=== PATIENT | female | born 1995 | race Caucasian/White ===

== ENCOUNTER 2016-11-28 19:22 | Emergency (ER) | payer MEDICAID ==
[~2016-11-28] VITALS: Ht 167.6 cm; Wt 60.0 kg
[2016-11-28 19:29] VITALS: BP 148/81; PULSE 90; RESP 18; TEMP 98.1; O2SAT 99
[2016-11-28] MEDS ORDERED: METH40TA PO (19:40)
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
[2016-11-28] MEDS ORDERED: LIDOCAINE HCL 1% 50 ML VIAL INFIL ONE (19:45)
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
[2016-11-28 22:12] VITALS: BP 134/68; PULSE 78; RESP 18; O2SAT 100
== END 2016-11-28 22:12 | disposition home or self-care (01) ==
LOC: NEPD 19:22
DX: S02.2XXA Fracture of nasal bones, initial encounter for closed fracture (principal); S01.81XA Laceration without foreign body of other part of head, initial encounter; S00.12XA Contusion of left eyelid and periocular area, initial encounter; W22.8XXA Striking against or struck by other objects, initial encounter; Z72.0 Tobacco use; Z88.2 Allergy status to sulfonamides; Z79.899 Other long term (current) drug therapy
CPT/HCPCS: 12011; 70450; 70486; 84703

== ENCOUNTER 2016-12-05 08:49 | Emergency (ER) | payer MEDICAID ==
[~2016-12-05] VITALS: Ht 157.5 cm; Wt 50.0 kg
[~2016-12-05 08:49] MED LIST: METH40TA PO
[2016-12-05 08:51] VITALS: BP 116/57; PULSE 71; RESP 14; TEMP 98.6; O2SAT 100
--- NOTE | 2016-12-05 09:31 | PD ---
HPI Chief Complaint: Skin Problem Time Seen by Provider: 09:09 Travel History International Travel<30 days: No Contact w/Intl Traveler<30days: No Traveled to known affect area: No History of Present Illness HPI This patient requests suture removal. She had sutures placed in her left eyebrow 5 days ago. She is not having any drainage or fever. Symptoms severity is mild PFSH Past Medical History ?: Not : 2 Para: 2 Social History Alcohol Use: No Tobacco Use: Yes Substance Use: No Allergies-Medications (Allergen,Severity, Reaction): Coded Allergies: Sulfa (Sulfonamide Antibiotics) (Verified Allergy, Unknown, 11/28/16) Reported Meds & Prescriptions Reported Meds & Active Scripts Active Reported Methadone (Methadone HCl) 40 Mg Tab 160 Mg PO DAILY Review of Systems General / Constitutional: No: Fever HENT: No: Headaches Cardiovascular: No: Chest Pain or Discomfort Physical Exam Narrative Psych: Normal mood and affect. Normal insight and judgment. NECK: Symmetrical appearance, midline trachea. No mass or crepitus. Thyroid without enlargement, tenderness, or mass. Left brow: [address] No dehiscence or sign of infection Data Data Last Documented VS Vital Signs Date Time Temp Pulse Resp B/P (MAP) Pulse Ox O2 Delivery O2 Flow Rate FiO2 12/05/16 08:51 98.6 71 14 116/57 (76) 100 MDM Medical Decision Making Medical Screen Exam Complete: Yes Emergency Medical Condition: Yes Medical Record Reviewed: Yes Differential Diagnosis Suture removal, laceration repair, dehiscence Narrative Course I have reviewed the patient's electronic medical record. Sutures are removed The patient was advised to follow up with their physician and return if they worsen. Diagnosis Primary Impression: Visit for suture removal Additional Instructions: The patient was advised to follow up with their physician and return if they worsen. Med/Other Pt SpecificInfo: Other Disposition: 01 DISCHARGE HOME Condition: Stable Sheldon Bartlett MD Dec 05, 2016 09:31
== END 2016-12-05 09:46 | disposition home or self-care (01) ==
LOC: NEPD 08:49
DX: S01.112D Laceration without foreign body of left eyelid and periocular area, subsequent encounter (principal); Z48.02 Encounter for removal of sutures; X58.XXXD Exposure to other specified factors, subsequent encounter
CPT/HCPCS: 99281

== ENCOUNTER 2017-05-01 20:07 | Emergency (ER) | payer MEDICAID ==
[2017-05-01 20:27] VITALS: BP 125/60; PULSE 74; RESP 12; TEMP 98.7; O2SAT 98
--- NOTE | 2017-05-02 12:13 | PD ---
HPI Chief Complaint: Related Problem Time Seen by Provider: 20:27 Travel History International Travel<30 days: No Contact w/Intl Traveler<30days: No Traveled to known affect area: No History of Present Illness HPI 21-year-old female presents to [facility] department for evaluation of lower abdominal cramping. Patient took a positive test one week ago. She is uncertain how far along she might be. She came for evaluation because she had lower abdominal cramping a couple hours ago. It is subsided. She denies any fever or chills. No vaginal discharge or bleeding. No other symptoms to report. PFSH Past Medical History ?: : 2 Para: 2 Social History Alcohol Use: No Tobacco Use: Yes Substance Use: No Allergies-Medications (Allergen,Severity, Reaction): Coded Allergies: Sulfa (Sulfonamide Antibiotics) (Verified Allergy, Unknown, 11/28/16) Reported Meds & Prescriptions Reported Meds & Active Scripts Active Reported Methadone (Methadone HCl) 40 Mg Tab 160 Mg PO DAILY Review of Systems Except as stated in HPI: all other systems reviewed are Neg Physical Exam Narrative Well-nourished female patient ambulatory and in no acute distress. She appears nontoxic. She has even respirations. Regular heart rate. Moves all extremities speech to me clearly. Data Data Last Documented VS Vital Signs Date Time Temp Pulse Resp B/P (MAP) Pulse Ox O2 Delivery O2 Flow Rate FiO2 05/01/17 20:27 98.7 74 12 125/60 (81) 98 Orders Orders Ed Urine Pregnancytest Poc (05/01/17 20:29) MDM Medical Decision Making Medical Screen Exam Complete: Yes Emergency Medical Condition: Yes Medical Record Reviewed: Yes Differential Diagnosis versus UTI versus STD versus threatened Narrative Course 21-year-old female presents to emergency department for evaluation of lower abdominal pain. Patient appears nontoxic. Vital signs are stable. Workup is initiated. Prior to PEG placement, patient chooses to leave. AMA: The risks of leaving against medical advice without further evaluation treatment were discussed with the patient. These risks include cardiac dysfunction, cardiac dysrhythmia, possible heart attack, possible stroke or . The patient indicated understanding of these risks and appeared to have the capacity to make this decision. Diagnosis Primary Impression: Abdominal pain Patient Instructions: General Instructions Departure Forms: Tests/Procedures Disposition: 07 AGAINST MEDICAL ADVICE Condition: Stable Chantal Oreilly May 02, 2017 12:13
== END 2017-05-01 21:29 | disposition left against medical advice (07) ==
LOC: NED 20:07
DX: O26.899 Other specified pregnancy related conditions, unspecified trimester (principal); Z53.21 Procedure and treatment not carried out due to patient leaving prior to being seen by health care provider; R10.9 Unspecified abdominal pain; R10.30 Lower abdominal pain, unspecified; Z72.0 Tobacco use
CPT/HCPCS: 99282

== ENCOUNTER 2017-05-09 15:58 | Emergency (ER) | payer MEDICAID ==
[~2017-05-09] VITALS: Ht 157.5 cm; Wt 54.5 kg
[2017-05-09 16:06] VITALS: BP 115/57; PULSE 88; RESP 22; TEMP 98.8; O2SAT 98
[2017-05-09 16:09] VITALS: BP 115/57; PULSE 91; RESP 22; TEMP 98.8; O2SAT 99
[2017-05-09] MEDS ORDERED: PRENCHW PO (16:13)
[2017-05-09 17:18] LABS: BASOPHIL % 0.4 % (0.0-2.0); EOSINOPHIL % 0.4 % (0.0-4.0); HEMATOCRIT 41.6 % (35.0-46.0); HEMOGLOBIN 14.4 GM/DL (11.6-15.3); LYMPH % 18.1 % (9.0-44.0); LYMPHOCYTE # 1.9 TH/MM3 (1.0-4.8); MEAN CELL VOLUME 85.1 FL (80.0-100.0); MEAN CORPUSCULAR HEMOGLOBIN 29.6 PG (27.0-34.0); MEAN CORPUSCULAR HGB CONC 34.7 % (32.0-36.0); MEAN PLATELET VOLUME 9.3 FL (7.0-11.0); MONO % 5.5 % (0.0-8.0); MONOCYTE # 0.6 TH/MM3 (0-0.9); NEUT % 75.6 % (16.0-70.0); PLATELET COUNT 244 TH/MM3 (150-450); RED BLOOD COUNT 4.88 MIL/MM3 (4.00-5.30); RED CELL DISTRIBUTION WIDTH 13.3 % (11.6-17.2); WHITE BLOOD COUNT 10.5 TH/MM3 (4.0-11.0)
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
[2017-05-09 17:33] LABS: ALT (GPT) 116 U/L (10-53)
[2017-05-09 17:49] LABS: ALKALINE PHOSPHATASE 65 U/L (45-117); TOTAL BILIRUBIN ADULT 0.8 MG/DL (0.2-1.0); TOTAL PROTEIN 8.3 GM/DL (6.4-8.2)
[2017-05-09 17:55] LABS: ALBUMIN 4.2 GM/DL (3.4-5.0); AST (GOT) 62 U/L (15-37); BICARBONATE 21.8 MEQ/L (21.0-32.0); BLOOD UREA NITROGEN 6 MG/DL (7-18); CALCIUM 8.9 MG/DL (8.5-10.1); CHLORIDE 102 MEQ/L (98-107); CREATININE 0.74 MG/DL (0.50-1.00); GLOMERULAR FILTRATION RATE 97 ML/MIN (>89); GLUCOSE,RANDOM 77 MG/DL (74-106); SODIUM (NA) 136 MEQ/L (136-145)
[2017-05-09 18:56] LABS: AMORPHOUS SEDIMENT, URINE RARE; BACTERIA, URINE MANY /hpf; BILIRUBIN, URINE NEG (NEG); BLOOD, URINE NEG (NEG); GLUCOSE,URINE NEG (NEG); KETONE, URINE 150 mg/dL (NEG); MUCUS URINE MANY /lpf (OCC); NITRITE,URINE POS (NEG); PH, URINE 6.5 (5.0-8.5); SQUAMOUS EPITHELIAL CELL URINE 6 /hpf (0-5); URINE COLOR YELLOW (YELLW/STRAW); URINE LEUKOCYTE ESTERASE MOD (NEG)
[2017-05-09] MEDS ORDERED: NITROFURANTOIN MONOHYD MACROCR 100 MG CAP PO ONE (19:15)
--- NOTE | 2017-05-09 20:18 | RADRPT ---
EXAM DATE/TIME: 05/09/2017 19:11 [facility] COMPARISON: No previous studies available for comparison. INDICATIONS : Right lower quadrant pain. LAB(S): Beta-hC MEDICAL HISTORY : . Substance abuse. SURGICAL HISTORY : LEEP. ENCOUNTER: Initial ACUITY: 1 day PAIN SCORE: 4/10 LOCATION: Bilateral pelvis MEASUREMENTS: UTERUS: 8.7 x 5.9 x 5.5 cm ENDOMETRIAL STRIPE: 20 mm RIGHT OVARY: 4.1 x 2.6 x 2.0 cm LEFT OVARY: 3.0 x 2.5 x 2.1 cm FREE FLUID: Yes small amount in posterior cul de sac. CROWN RUMP LENGTH: 0.37 cm = 6 WKS 0 DAYS FHR: 117 BPM FINDINGS: UTERUS: There is an intrauterine at approximately 6 weeks gestational age. An approximately 12 x 6 x 6 mm subchorionic hemorrhage is present. heart tones are demonstrated. RIGHT OVARY: 2.2 x 1.9 x 1.8 cm heterogeneous nonvascular structure, probably a corpus luteal cyst or a hemorrhagi c cyst. LEFT OVARY: Ovary contains no mass or significant cystic lesion. MISCELLANEOUS: Small, simple appearing free fluid in the cul-de-sac. CONCLUSION: 1. Single, viable intrauterine with a small subchorionic hemorrhage. 2. Nonvascular mass of the left ovary probably a corpus luteal and/or hemorrhagic cyst. Features are not typical of ectopic. 3. Normal left ovary. 4. Small and fairly simple appearing free fluid in the pelvic cul-de-sac. Vamsi Carpio MD on May 09, 2017 at 20:13 Board Certified Radiologist. This report was verified electronically.
[2017-05-09] MEDS ORDERED: CEPH-460 PO (20:29)
== END 2017-05-09 21:41 ==
LOC: NEPD 15:58
DX: O23.41 Unspecified infection of urinary tract in pregnancy, first trimester (principal); B96.20 Unspecified Escherichia coli [E. coli] as the cause of diseases classified elsewhere; O34.81 Maternal care for other abnormalities of pelvic organs, first trimester; N83.201 Unspecified ovarian cyst, right side; O99.331 Smoking (tobacco) complicating pregnancy, first trimester; F17.210 Nicotine dependence, cigarettes, uncomplicated; Z3A.01 Less than 8 weeks gestation of pregnancy
CPT/HCPCS: 76700; 80053; 81001; 84702; 84703; 85025; 87077; 87086; 87186

== ENCOUNTER 2017-09-04 10:14 | Observation (INO) ==
[2017-09-04 14:13] LABS: Baso % (Auto) 0.3 % (0.0-2.0); Eos # (Auto) 0.1 th/mm3 (0.0-0.4); Eos % (Auto) 1.4 % (0.0-4.0); Hematocrit 37.4 % (35.0-46.0); Hemoglobin 12.6 gm/dL (11.6-15.3); Lymph # (Auto) 1.5 th/mm3 (1.0-4.8); Lymph % (Auto) 18.6 % (9.0-44.0); Mean Corpuscular HGB Conc 33.8 % (32.0-36.0); Mean Corpuscular Hemoglobin 28.8 pg (27.0-34.0); Mean Corpuscular Volume 85.1 fL (80.0-100.0); Mean Platelet Volume 8.3 fL (7.0-11.0); Mono # (Auto) 0.4 th/mm3 (0.0-0.9); Mono % (Auto) 5.4 % (0.0-8.0); Neut # (Auto) 5.8 th/mm3 (1.8-7.7); Neut % (Auto) 74.3 % (16.0-70.0); Platelet Count 211 th/mm3 (150-450); Red Cell Distribution Width 13.9 % (11.6-17.2); White Blood Count 7.9 th/mm3 (4.0-11.0)
[2017-09-04 14:38] LABS: Anion Gap 8 meq/L (5-15); Blood Urea Nitrogen 9 mg/dL (7-18); Calcium 8.7 mg/dL (8.5-10.1); Carbon Dioxide 25.1 meq/L (21.0-32.0); Chloride 108 meq/L (98-107); Glomerular Filtration Rate Greater Than 89 mL/min (>89); Glucose,Random 92 mg/dL (74-106); Potassium 4.1 meq/L (3.5-5.1); Sodium 141 meq/L (136-145)
[2017-09-04 14:39] LABS: Albumin 3.3 g/dL (3.4-5.0)
[2017-09-04 14:41] LABS: Total Protein 7.1 g/dL (6.4-8.2)
[2017-09-04 15:20] LABS: Amphetamine Urine With Conf Neg (Neg); Benzodiazepine Urine With Conf Neg (Neg)
--- NOTE | 2017-09-04 19:15 | P.OBANTE ---
Subjective Interval History: Full H & P dictated admitted for hyperemesis and opioid use disorder now sleeping soundly anticipate discharge on buprenophine and reglan tomorrow Objective Vital Signs and I&O: Vital Signs 09/04/17 12:00 09/04/17 15:59 09/04/17 16:00 Temperature 97.9 F 98.3 F Pulse Rate 70 70 Respiratory Rate 18 18 Blood Pressure 89/48 L 108/41 L Intake & Output 09/04/17 09/04/17 09/05/17 06:59 18:59 06:59 Weight 61.689 kg Other: Weight On Admission 61.689 kg Lab and Micro Results: Laboratory Results - last 24 hr 09/04/17 09/04/17 09/04/17 13:52 13:52 13:52 WBC 7.9 RBC 4.40 Hgb 12.6 Hct 37.4 MCV 85.1 MCH 28.8 MCHC 33.8 RDW 13.9 Plt Count 211 MPV 8.3 Neut % (Auto) 74.3 H Lymph % (Auto) 18.6 Payne % (Auto) 5.4 Eos % (Auto) 1.4 Baso % (Auto) 0.3 Neut # (Auto) 5.8 Lymph # (Auto) 1.5 Payne # (Auto) 0.4 Eos # (Auto) 0.1 Baso # (Auto) 0.0 WBC Differential . Differential Comment Auto diff final Sodium 141 Potassium 4.1 Chloride 108 H Carbon Dioxide 25.1 Anion Gap 8 BUN 9 Creatinine 0.54 Estimated GFR Greater than 89 Random Glucose 92 Calcium 8.7 Total Bilirubin 0.4 Direct Bilirubin 0.1 Indirect Bilirubin 0.3 AST 18 ALT 31 Alkaline Phosphatase 77 Total Protein 7.1 Albumin 3.3 L Beta-Hydroxybutyric Acd Urine Opiates Screen Ur Barbiturates Screen Ur Amphetamine Screen U Benzodiazepines Scrn Urine Cocaine Screen U Cannabinoids Screen 09/04/17 09/04/17 13:52 14:30 WBC RBC Hgb Hct MCV MCH MCHC RDW Plt Count MPV Neut % (Auto) Lymph % (Auto) Payne % (Auto) Eos % (Auto) Baso % (Auto) Neut # (Auto) Lymph # (Auto) Payne # (Auto) Eos # (Auto) Baso # (Auto) WBC Differential Differential Comment Sodium Potassium Chloride Carbon Dioxide Anion Gap BUN Creatinine Estimated GFR Random Glucose Calcium Total Bilirubin Direct Bilirubin Indirect Bilirubin AST ALT Alkaline Phosphatase Total Protein Albumin Beta-Hydroxybutyric Acd 0.11 Urine Opiates Screen Neg Ur Barbiturates Screen Neg Ur Amphetamine Screen Neg U Benzodiazepines Scrn Neg Urine Cocaine Screen Neg U Cannabinoids Screen Neg Physical Exam: GENERAL: Well-nourished, well-developed patient. CARDIOVASCULAR: Regular rate and rhythm without murmurs, gallops, or rubs. RESPIRATORY: Breath sounds equal bilaterally. No accessory muscle use. ABDOMEN/GI: Abdomen soft, non-tender. Fundus: [-] GENITOURINARY: External Genitalia: intact and normal in appearance Cervix: [-] Dilatation: [-] Effacement: [-] Station: [-] Presentation: [-] Membranes: [-] Uterine Contractions: [-] FHT's: Category: [-] Baseline: [-] Reactive: [-] Variability: [-] Decels: [-] EXTREMITIES: No cyanosis or edema, non-tender, without signs of DVT. Assessment and Plan - Diagnosis (1) Hyperemesis gravidarum Code(s): O21.0 - Mild hyperemesis gravidarum Status: Acute (2) Opioid use disorder Code(s): F11.99 - Opioid use, unspecified with unspecified opioid-induced disorder Status: Acute (3) 23 weeks gestation of Code(s): Z3A.23 - 23 weeks gestation of Status: Acute
[2017-09-04] MEDS ORDERED: traZODone 50 MG Tablet PO SCH (21:15)
[2017-09-04] MEDS: Metoclopramide 10 MG Tablet PO SCH (21:49)
[2017-09-05 02:06] LABS: Amorphous Sediment,Urine Rare /hpf; Bacteria,Urine Rare /hpf; Bilirubin,Urine Negative (Negative); Calcium Oxalate Crystals,Urine Occasional /hpf; Clarity,Urine Cloudy (Clear); Color,Urine Yellow (Yellw/Straw); Glucose,Urine (UA) Negative (Negative); Leukocyte Esterase,Urine Negative (Negative); Mucus,Urine Few /lpf (Occasional); Nitrite,Urine Negative (Negative); Specific Gravity,Urine 1.021 (1.002-1.035); Squamous Epithelial Cell,Urine 1 /hpf (0-5)
[2017-09-05] MEDS: Metoclopramide 10 MG Tablet PO SCH ×3 (07:58→17:03)
--- NOTE | 2017-09-05 08:22 | P.OBANTE ---
Subjective Interval History: Feeling ok this am after a very rough 24 hours. Now tolerating po and desires food. Was without any opioid until 4 pm which both exacerbated withdrawal but facilitated transition. Took 12 mg subutex total yesterday. Ready for dose today. No fever, chills, leakage of fluid. GFM noted. Objective Vital Signs and I&O: Vital Signs 09/04/17 12:00 09/04/17 15:59 09/04/17 16:00 Temperature 97.9 F 98.3 F Pulse Rate 70 70 Respiratory Rate 18 18 Blood Pressure 89/48 L 108/41 L 09/04/17 19:59 09/04/17 23:50 09/05/17 04:04 Temperature 98.6 F 98.1 F 98.6 F Pulse Rate 71 75 78 Respiratory Rate 15 18 18 Blood Pressure 107/56 L 99/44 L 102/54 L 09/05/17 08:03 Temperature Pulse Rate Respiratory Rate 16 Blood Pressure Intake & Output 09/04/17 09/05/17 09/05/17 18:59 06:59 18:59 Intake Total 1000 / 1000 Balance 1000 / 1000 Weight 61.689 kg Intake: IV 1000 / 1000 LR 1000 mL Inj 1,000 ML @ 125 1000 / 1000 mls/hr IV.SIG .Q8H [facility] Rx#: [id number] Other: Weight On Admission 61.689 kg Lab and Micro Results: Laboratory Results - last 24 hr 09/04/17 09/04/17 09/04/17 13:52 13:52 13:52 WBC 7.9 RBC 4.40 Hgb 12.6 Hct 37.4 MCV 85.1 MCH 28.8 MCHC 33.8 RDW 13.9 Plt Count 211 MPV 8.3 Neut % (Auto) 74.3 H Lymph % (Auto) 18.6 [place] % (Auto) 5.4 Eos % (Auto) 1.4 Baso % (Auto) 0.3 Neut # (Auto) 5.8 Lymph # (Auto) 1.5 [place] # (Auto) 0.4 Eos # (Auto) 0.1 Baso # (Auto) 0.0 WBC Differential . Differential Comment Auto diff final Sodium 141 Potassium 4.1 Chloride 108 H Carbon Dioxide 25.1 Anion Gap 8 BUN 9 Creatinine 0.54 Estimated GFR Greater than 89 Random Glucose 92 Calcium 8.7 Total Bilirubin 0.4 Direct Bilirubin 0.1 Indirect Bilirubin 0.3 AST 18 ALT 31 Alkaline Phosphatase 77 Total Protein 7.1 Albumin 3.3 L Beta-Hydroxybutyric Acd Urine Color Urine Clarity Urine pH Ur Specific [place] Urine Protein Urine Glucose (UA) Urine Ketones Urine Occult Blood Urine Nitrate Urine Bilirubin Urine Urobilinogen Ur Leukocyte Esterase Urine RBC Urine WBC Ur Squamous Epith Cells Calcium Oxalate Crystal Amorphous Sediment Urine Bacteria Urine Mucus Micro UA Comment Urine Culture Comments Urine Opiates Screen Ur Barbiturates Screen Ur Amphetamine Screen U Benzodiazepines Scrn Urine Cocaine Screen U Cannabinoids Screen 09/04/17 09/04/17 09/04/17 13:52 14:30 14:30 WBC RBC Hgb Hct MCV MCH MCHC RDW Plt Count MPV Neut % (Auto) Lymph % (Auto) [place] % (Auto) Eos % (Auto) Baso % (Auto) Neut # (Auto) Lymph # (Auto) [place] # (Auto) Eos # (Auto) Baso # (Auto) WBC Differential Differential Comment Sodium Potassium Chloride Carbon Dioxide Anion Gap BUN Creatinine Estimated GFR Random Glucose Calcium Total Bilirubin Direct Bilirubin Indirect Bilirubin AST ALT Alkaline Phosphatase Total Protein Albumin Beta-Hydroxybutyric Acd 0.11 Urine Color Yellow Urine Clarity Cloudy H Urine pH 6.0 Ur Specific [place] 1.021 Urine Protein Negative Urine Glucose (UA) Negative Urine Ketones Negative Urine Occult Blood Negative Urine Nitrate Negative Urine Bilirubin Negative Urine Urobilinogen 2.0 H Ur Leukocyte Esterase Negative Urine RBC Less than 1 Urine WBC 1 Ur Squamous Epith Cells 1 Calcium Oxalate Crystal Occasional H Amorphous Sediment Rare H Urine Bacteria Rare H Urine Mucus Few H Micro UA Comment Culture not ind Urine Culture Comments Culture not ind Urine Opiates Screen Neg Ur Barbiturates Screen Neg Ur Amphetamine Screen Neg U Benzodiazepines Scrn Neg Urine Cocaine Screen Neg U Cannabinoids Screen Neg Physical Exam: GENERAL: Well-nourished, well-developed patient. PERRLA Neither dilated nor pin point no sweating, sniffling, sneezing CARDIOVASCULAR: Regular rate and rhythm without murmurs, gallops, or rubs. RESPIRATORY: Breath sounds equal bilaterally. No accessory muscle use. ABDOMEN/GI: Abdomen soft, non-tender. fundus U +2 EXTREMITIES: No cyanosis or edema, non-tender, without signs of DVT. Assessment and Plan - Diagnosis (1) Hyperemesis gravidarum Code(s): O21.0 - Mild hyperemesis gravidarum Status: Acute (2) Opioid use disorder Code(s): F11.99 - Opioid use, unspecified with unspecified opioid-induced disorder Status: Acute (3) 23 weeks gestation of Code(s): Z3A.23 - 23 weeks gestation of Status: Acute - Plan Today will advance diet and change scheduling of subutex obtain quick ultrasound anticipate discharge tonight or am Monday
--- NOTE | 2017-09-05 09:43 | MH ---
cc: Radha John MD DATE OF ADMISSION: 09/04/2017 REASON FOR OBSERVATION: 23-1/2 week with inability to hold any food down and loss of 4 pounds in 4 days, nausea, vomiting and muscle pain. SECONDARY DIAGNOSIS: Opioid use disorder, beginning transition onto Subutex. Hepatitis C. HISTORY OF PRESENT CONDITION: The patient is a 22-year-old 3, para 2, with LMP believed to be 03/30/2017 and EDC by this of 01/04/2018 and by 10-week ultrasound of 12/29/2017. She had been brought to the office by the long term where she had been incarcerated for 30 days for violation of probation. She had been on 130 mg of methadone prior to conception. They had increased her to 140 at the time of her diagnosis. Prior to using methadone, her drug of choice had been Dilaudid and she would use up to 32 mg a day for 1 year IV. She had obtained hepatitis C from that. Initially started when she had a partner that encouraged her to begin opioid use and she had a in the family. She was smoking cigarettes, but has stopped that. There is no other substances that she admits to since the methadone and initial drug screen, I believe was consistent with that. Father of the baby was paying the $17 a day for methadone. She was transitioned to oxycodone a week ago and was scheduled to take 80 mg a day, but found she needed more to get through the day and then began having significant symptoms of hyperemesis gravidarum. She is being admitted for symptomatic care and then while she is admitted, be transitioned to buprenorphine. PAST MEDICAL HISTORY: Her general history is significant for hepatitis C. She does have an ALLERGY TO SULFA. She has had a history of abnormal Pap smear and a LEEP. Her cervical length was 4.13 in the office on ultrasound. OBSTETRICAL HISTORY: Significant for 2 term deliveries of healthy babies, 2 girls at 40 weeks in 2011 and 2013. They are currently with their grandmother. She is not smoking or drinking. PHYSICAL EXAMINATION: She is pale, has a mildly elevated heartbeat. She has poor skin turgor. She has no goose bumps. Pupils are equal, reactive to light, and neither pinpoint nor dilated. She is not sweating, sniffling or sneezing. She seems to have anything more of a flat affect and depressed. We may need to address that, also. Her blood type is O positive. Her hemoglobin was 13.8. Her Pap smear here was normal. She is immune to [place] measles. Hepatitis B and HIV were negative. She is negative for GC and chlamydia. Hep C is positive. VDRL will be drawn while she is in the hospital. She has no thyroid enlargement. Lungs are clear. Heart is regular. Fundus is at about umbilicus. She has good heart tones. A pelvic exam was not done. She has normal deep tendon reflexes and no edema. IMPRESSION/PLAN: 23-1/2 week intrauterine with severe nausea, vomiting, weight loss, who needs to come in for hydration and while she is there, she will be initiating her buprenorphine. Risks, benefits, expectations of this course of action have been discussed in great detail. Previously,we talked about maintaining methadone throughout the . We talked about transitioning to Subutex. We talked about abstinence after detoxification versus maintenance therapy. We reviewed the concept of abstinence syndrome. We talked about WARM as an option. Initially, she wanted to stay on her methadone, but has been unable to maintain the cost of that. She has been on oxycodone in an attempt to transition on outpatient basis, and since we are part way through that, I think we can complete that while she is in the hospital. Radha John MD PPC/TL , 09:02 AM , 09:33 AM
--- NOTE | 2017-09-05 17:55 | P.OBANTE ---
Subjective Interval History: had very good day and tolerated po fluids and solids with no emesis. did well on subutex with no withdrawal symptoms ativan helped with anxiety No MAY, N, V, leakage, contractions GFM Objective Vital Signs and I&O: Vital Signs 09/04/17 19:59 09/04/17 23:50 09/05/17 04:04 Temperature 98.6 F 98.1 F 98.6 F Pulse Rate 71 75 78 Respiratory Rate 15 18 18 Blood Pressure 107/56 L 99/44 L 102/54 L 09/05/17 08:00 09/05/17 08:03 09/05/17 09:00 Temperature 97.9 F Pulse Rate 88 Respiratory Rate 16 Blood Pressure 105/59 L 09/05/17 13:58 09/05/17 14:00 Temperature 98.1 F Pulse Rate 97 H Respiratory Rate 18 Blood Pressure 109/50 L Intake & Output 09/04/17 09/05/17 09/05/17 18:59 06:59 18:59 Intake Total 1000 / 1000 Balance 1000 / 1000 Weight 61.689 kg Intake: IV 1000 / 1000 LR 1000 mL Inj 1,000 ML @ 125 1000 / 1000 mls/hr IV.SIG .Q8H [facility] Rx#: [id number] Other: Weight On Admission 61.689 kg Lab and Micro Results: Laboratory Results - last 24 hr 09/04/17 09/05/17 14:30 07:50 Urine Color Yellow Urine Clarity Cloudy H Urine pH 6.0 Ur Specific [place] 1.021 Urine Protein Negative Urine Glucose (UA) Negative Urine Ketones Negative Urine Occult Blood Negative Urine Nitrate Negative Urine Bilirubin Negative Urine Urobilinogen 2.0 H Ur Leukocyte Esterase Negative Urine RBC Less than 1 Urine WBC 1 Ur Squamous Epith Cells 1 Calcium Oxalate Crystal Occasional H Amorphous Sediment Rare H Urine Bacteria Rare H Urine Mucus Few H Micro UA Comment Culture not ind Urine Culture Comments Culture not ind RPR Nonreactive Physical Exam: GENERAL: Well-nourished, well-developed patient. CARDIOVASCULAR: Regular rate and rhythm without murmurs, gallops, or rubs. RESPIRATORY: Breath sounds equal bilaterally. No accessory muscle use. ABDOMEN/GI: Abdomen soft, non-tender. Fundus: [-] GENITOURINARY: External Genitalia: intact and normal in appearance Cervix: [-] Dilatation: [-] Effacement: [-] Station: [-] Presentation: [-] Membranes: [-] Uterine Contractions: [-] FHT's: Category: [-] Baseline: [-] Reactive: [-] Variability: [-] Decels: [-] EXTREMITIES: No cyanosis or edema, non-tender, without signs of DVT. Assessment and Plan - Diagnosis (1) Hyperemesis gravidarum Code(s): O21.0 - Mild hyperemesis gravidarum Status: Acute (2) Opioid use disorder Code(s): F11.99 - Opioid use, unspecified with unspecified opioid-induced disorder Status: Acute (3) 23 weeks gestation of Code(s): Z3A.23 - 23 weeks gestation of Status: Acute - Plan Today will advance diet and change scheduling of subutex obtain quick ultrasound anticipate discharge tonight or am Monday 5:30 pm ready for discharge subutex 4 mg QID ativan 1 mg BID prn buspar 10 TID RTO one week or prn
[2017-09-07 23:51] LABS: Hepatitis C RNA (PCR) log IUs 7.03 (0-1.18)
== END 2017-09-05 18:29 | disposition home or self-care (01) ==
LOC: H2E
PROVIDERS: ADMIT Obstetrics & Gynecology; ATTEND Obstetrics & Gynecology
DX: Z87.891 Personal history of nicotine dependence; O98.412 Viral hepatitis complicating pregnancy, second trimester; R63.4 Abnormal weight loss; O21.8 Other vomiting complicating pregnancy; O99.322 Drug use complicating pregnancy, second trimester; Z3A.23 23 weeks gestation of pregnancy; Z88.2 Allergy status to sulfonamides; Z03.89 Encounter for observation for other suspected diseases and conditions ruled out; O21.0 Mild hyperemesis gravidarum; F11.10 Opioid abuse, uncomplicated

== ENCOUNTER 2017-12-14 06:13 | Inpatient (IN) ==
[2017-12-14] MEDS ORDERED: Oxytocin 30 Units/500ml Premix 30 UNITS/500 ML BAG IV.SIG PRN (08:08)
[2017-12-14 08:27] LABS: Baso % (Auto) 0.5 % (0.0-2.0); Eos # (Auto) 0.3 th/mm3 (0.0-0.4); Eos % (Auto) 3.5 % (0.0-4.0); Hematocrit 35.4 % (35.0-46.0); Hemoglobin 12.5 gm/dL (11.6-15.3); Lymph % (Auto) 21.5 % (9.0-44.0); Mean Corpuscular HGB Conc 35.3 % (32.0-36.0); Mean Corpuscular Hemoglobin 29.4 pg (27.0-34.0); Mean Corpuscular Volume 83.2 fL (80.0-100.0); Mean Platelet Volume 9.3 fL (7.0-11.0); Mono # (Auto) 0.6 th/mm3 (0.0-0.9); Mono % (Auto) 6.3 % (0.0-8.0); Neut # (Auto) 6.4 th/mm3 (1.8-7.7); Neut % (Auto) 68.2 % (16.0-70.0); Platelet Count 224 th/mm3 (150-450); Red Blood Count 4.25 mil/mm3 (4.00-5.30); Red Cell Distribution Width 13.8 % (11.6-17.2); White Blood Count 9.3 th/mm3 (4.0-11.0)
[2017-12-14] MEDS ORDERED: Sod Chloride 0.9% Inj 1,000 ML IV.CONT PRN (08:40)
[2017-12-14] MEDS ORDERED: Naloxone Inj 0.4 MG/ML Vial IV.PUSH PRN ×2 (08:40→20:01)
[2017-12-14] MEDS ORDERED: Oxytocin 30 Units/500ml Premix 30 UNITS/500 ML BAG IV.SIG ONE (08:40)
[2017-12-14] MEDS ORDERED: Sodium Chlor 0.9% Inj 500 ML IV.SIG PRN (08:40)
[2017-12-14] MEDS ORDERED: fentaNYL Citrate Inj 100 MCG/2 ML Ampul IV.PUSH PRN ×2 (08:40)
[2017-12-14] MEDS ORDERED: Penicillin G Potassium Inj 5,000,000 UNIT in Sodium Chloride 0.9% Inj 100 ML IV.SIG ONE (08:40)
[2017-12-14 08:41] LABS: Bacteria,Urine Occasional /hpf; Bilirubin,Urine Negative (Negative); Clarity,Urine Clear (Clear); Color,Urine Yellow (Yellw/Straw); Glucose,Urine (UA) Negative (Negative); Leukocyte Esterase,Urine Negative (Negative); Mucus,Urine Few /lpf (Occasional); Nitrite,Urine Negative (Negative); Specific Gravity,Urine 1.016 (1.002-1.035); Squamous Epithelial Cell,Urine 1 /hpf (0-5)
[2017-12-14] MEDS ORDERED: Citric Acid/Sodium Citrate Liq 30 ML UDC PO SCH (08:45)
[2017-12-14] MEDS ORDERED: Sodium Chloride 0.9% 2 ML Flush PRN IV.FLUSH (08:50)
[2017-12-14 08:53] LABS: Amphetamine Urine With Conf Neg (Neg); Benzodiazepine Urine With Conf Neg (Neg)
[2017-12-14] MEDS ORDERED: Sodium Chloride 0.9% 2 ML Flush BID IV.FLUSH SCH (09:00)
--- NOTE | 2017-12-14 09:11 | P.HPOB ---
History of Present Illness Service: Labor and delivery Primary Care Physician: No Primary Care Physician Chief Complaint: 38 week IUP with FANNY (on buprenorphine) and low JESSICA at 3 cm History of Present Illness: 22 yo swf at 37 6/7 weeks EGA with care at [facility] here for arom after GBS prophylaxis. Indication FANNY on subutex and low JESSICA. No PTL, GDM or HTN diseases. Known Hep C. No leaking, bleeding, chronic nausea and emesis treated with zofran and phenergan. GFM. Compliant with PNC. Weeks Gestation:: 38 Para: 2 : 3 - Inpatient Certification I certify that the inpatient services were ordered in accordance with Medicare regulations governing the order. This includes certification that hospital inpatient services are reasonable and necessary and in the case of services not specified as inpatient-only under 42 CFR 419.22(n), that they are appropriately provided as inpatient services in accordance to with the 2-midnight benchmark under 43 CFR 412.3(e) Estimated Total Length of Stay (Days): 3 Plans for Post Hospital Care: Home Review of Systems All other systems reviewed negative except as stated in HPI PMFSH - History History Provided By: Patient - Medical / Surgical Hx Neg / Unobtainable Surgical History: No Previous Surgery - Medical History Medical History: Medical History (Last Updated 11/09/17 @ 10:23 by Braulio Nuñez MD) Hepatitis C virus infection History of intravenous drug use in remission - Surgical History Surgical History: Surgical History (Last Updated 11/09/17 @ 10:23 by Braulio Nuñez MD) H/O LEEP - Social History I have reviewed the patient's Social History: Yes - Tobacco History Second Hand Smoke Exposure: No Tobacco Use In Past 30 Days: No Smoking Status: Former smoker - Alcohol History How Often Do You Have a Drink Containing Alcohol: Never - Substance Use History Substance History: Past History - Travel History Recent Travel in the [place] Within the Last 8 Weeks: No Recent Travel Out of the Country Within the Last 8 Weeks: No Medications and Allergies Active Medications: Active Medications Citric Acid/Sodium Citrate (Sodium Citrate/Citric Acid Liq) 30 ml PO WATER VESSEL CAPTAIN IDA Stop: 12/18/17 08:44 Fentanyl Citrate (Fentanyl Inj) 50 mcg IV.PUSH Q1H PRN PRN Reason: Pain Scale 3 - 5 Fentanyl Citrate (Fentanyl Inj) 100 mcg IV.PUSH Q1H PRN PRN Reason: PAIN SCALE 6 TO 10 Oxytocin (Pitocin 30 Units/Ns 500 Ml Premix) 30 units in 500 mls @ 2 mls/hr IV.SIG TITRATE PRN; Protocol PRN Reason: For induction of labor Lactated Ringer's (Lr 1000 Ml Inj) 1,000 mls @ 3,000 mls/hr IV.SIG UNSCH PRN PRN Reason: compromise or epidural Sodium Chloride (Ns Inj) 500 mls @ 1,000 mls/hr IV.SIG UNSCH PRN PRN Reason: SEE LABEL COMMENTS Sodium Chloride (Ns Inj) 1,000 mls @ 100 mls/hr IV.CONT .Q10H PRN PRN Reason: SEE LABEL COMMENTS Oxytocin (Pitocin 30 Units/Ns 500 Ml Premix) 30 units in 500 mls @ 999 mls/hr IV.SIG BOLUS ONE Stop: 12/14/17 09:10 Penicillin G Potassium 5,000, (000 unit/ Sodium Chloride) 100 mls @ 200 mls/hr IV.SIG ONCE ONE Stop: 12/14/17 09:09 Penicillin G Potassium 2,500, (000 unit/ Sodium Chloride) 100 mls @ 200 mls/hr IV.SIG Q4H IDA Lactated Ringer's (Lr 1000 Ml Inj) 1,000 mls @ 125 mls/hr IV.CONT .Q8H IDA Lidocaine HCl (Xylocaine 1% Inj) 0.1 ml I-DERMAL PRN PRN PRN Reason: For IV start Stop: 12/17/17 08:39 Lidocaine HCl (Xylocaine 1% Inj) 10 ml INFILTRATN PRN PRN PRN Reason: For episiotomy repair Stop: 12/16/17 08:39 Mineral Oil (Muri-Lube Oil) 10 ml TOPICAL PRN PRN PRN Reason: PRN perineal massage Naloxone HCl (Narcan Inj) 0.1 mg IV.PUSH Q2M PRN PRN Reason: for opiate reversal Sodium Chloride (Ns Flush) 2 ml IV.FLUSH BID IDA Sodium Chloride (Ns Flush) 2 ml IV.FLUSH PRN PRN PRN Reason: FLUSH AFTER USING IV ACCESS Allergies Allergy/AdvReac Type Severity Reaction Status Date / Time Sulfa (Sulfonamide Allergy Unknown Hives Verified 09/04/17 13:05 Antibiotics) Home Medications Medication Instructions Recorded Confirmed Type PNV cmb#[id number]-ferrous fumarate-FA 1 tab PO DAILY 09/04/17 09/04/17 History [] Exam Vital signs: Vital Signs 12/14/17 06:57 12/14/17 06:59 12/14/17 07:59 Temperature 98.8 F Pulse Rate 101 H 82 Respiratory Rate 16 16 Blood Pressure 128/69 98/45 L Intake & Output 12/13/17 12/14/17 12/14/17 18:59 06:59 18:59 Weight 63.503 kg - Constitutional no acute distress - Routine HEENT Exam Head: Present: normocephalic Eye: Present: PERRL ENT: Present: mucous membranes moist - Routine Neck Exam Present: supple - Routine Respiratory Exam Present: CTA bilaterally - Routine Cardiovascular Exam Present: RRR - Routine Abdominal Exam Present: soft, normoactive bowel sounds - Routine Extremities Exam Present: full ROM, pulses intact - Routine Skin Exam Present: intact - Routine Neurological Exam Present: alert, oriented X3 Results - Labs CBC & Chem 7: 12/14/17 07:15 Labs: Laboratory Results - last 24 hr 12/14/17 12/14/17 12/14/17 06:30 06:30 07:15 WBC 9.3 RBC 4.25 Hgb 12.5 Hct 35.4 MCV 83.2 MCH 29.4 MCHC 35.3 RDW 13.8 Plt Count 224 MPV 9.3 Neut % (Auto) 68.2 Lymph % (Auto) 21.5 [place] % (Auto) 6.3 Eos % (Auto) 3.5 Baso % (Auto) 0.5 Neut # (Auto) 6.4 Lymph # (Auto) 2.0 [place] # (Auto) 0.6 Eos # (Auto) 0.3 Baso # (Auto) 0.0 WBC Differential . Differential Comment Auto diff final Urine Color Yellow Urine Clarity Clear Urine pH 6.0 Ur Specific [place] 1.016 Urine Protein Negative Urine Glucose (UA) Negative Urine Ketones Negative Urine Occult Blood Negative Urine Nitrate Negative Urine Bilirubin Negative Urine Urobilinogen 2.0 H Ur Leukocyte Esterase Negative Urine RBC Less than 1 Urine WBC 4 Ur Squamous Epith Cells 1 Urine Bacteria Occasional H Urine Mucus Few H Micro UA Comment Culture not ind Ur Microscopic Review Not Reportable Urine Culture Comments Culture not ind Urine Opiates Screen Neg Ur Barbiturates Screen Neg Ur Amphetamine Screen Neg U Benzodiazepines Scrn Neg Urine Cocaine Screen Neg U Cannabinoids Screen Neg Blood Type Blood Type Recheck 12/14/17 07:15 WBC RBC Hgb Hct MCV MCH MCHC RDW Plt Count MPV Neut % (Auto) Lymph % (Auto) [place] % (Auto) Eos % (Auto) Baso % (Auto) Neut # (Auto) Lymph # (Auto) [place] # (Auto) Eos # (Auto) Baso # (Auto) WBC Differential Differential Comment Urine Color Urine Clarity Urine pH Ur Specific [place] Urine Protein Urine Glucose (UA) Urine Ketones Urine Occult Blood Urine Nitrate Urine Bilirubin Urine Urobilinogen Ur Leukocyte Esterase Urine RBC Urine WBC Ur Squamous Epith Cells Urine Bacteria Urine Mucus Micro UA Comment Ur Microscopic Review Urine Culture Comments Urine Opiates Screen Ur Barbiturates Screen Ur Amphetamine Screen U Benzodiazepines Scrn Urine Cocaine Screen U Cannabinoids Screen Blood Type O Positive Blood Type Recheck Required Group B Strep: Positive Caprini VTE Risk Assessment Caprini VTE Risk Assessment: No/Low Risk (score <= 1) Caprini Risk Assessment Model: Point Value = 1 Point Value = 2 Point Value = 3 Point Value = 5 Age 41-60 Minor surgery BMI > 25 kg/m2 Swollen legs Varicose veins or History of unexplained or recurrent spontaneous Oral contraceptives or hormone replacement Sepsis (< 1 month) Serious lung disease, including pneumonia (< 1 month) Abnormal pulmonary function Acute myocardial infarction Congestive heart failure (< 1 month) History of inflammatory bowel disease Medical patient at bed rest Age 61-74 Arthroscopic surgery Major open surgery (> 45 min) Laparoscopic surgery (> 45 min) Malignancy Confined to bed (> 72 hours) Immobilizing plaster cast Central venous access Age >= 75 History of VTE Family history of VTE Factor V Leiden Prothrombin [id number] Lupus anticoagulant Anticardiolipin antibodies Elevated serum homocysteine Heparin-induced thrombocytopenia Other congenital or acquired thrombophilia Stroke (< 1 month) Elective arthroplasty Hip, pelvis, or leg fracture Acute spinal cord injury (< 1 month) Prophylaxis Regimen: Total Risk Factor Score Risk Level Prophylaxis Regimen 0-1 Low Early ambulation 2 Moderate Order ONE of the following: *Sequential Compression Device (SCD) *Heparin 5000 units SQ BID 3-4 Higher Order ONE of the following medications: *Heparin 5000 units SQ TID *Enoxaparin/Lovenox 40 mg SQ daily (WT < 150 kg, CrCl > 30 mL/min) *Enoxaparin/Lovenox 30 mg SQ daily (WT < 150 kg, CrCl > 10-29 mL/min) *Enoxaparin/Lovenox 30 mg SQ BID (WT < 150 kg, CrCl > 30 mL/min) AND/OR *Sequential Compression Device (SCD) 5 or more Highest Order ONE of the following medications: *Heparin 5000 units SQ TID (Preferred with Epidurals) *Enoxaparin/Lovenox 40 mg SQ daily (WT < 150 kg, CrCl > 30 mL/min) *Enoxaparin/Lovenox 30 mg SQ daily (WT < 150 kg, CrCl > 10-29 mL/min) *Enoxaparin/Lovenox 30 mg SQ BID (WT < 150 kg, CrCl > 30 mL/min) AND *Sequential Compression Device (SCD) Assessment and Plan - Diagnosis (1) 38 weeks gestation of Code(s): Z3A.38 - 38 weeks gestation of Status: Acute (2) Opioid use disorder Code(s): F11.99 - Opioid use, unspecified with unspecified opioid-induced disorder Status: Acute (3) History of opioid abuse Code(s): Z87.898 - Personal history of other specified conditions Status: Acute (4) Hepatitis C virus infection Code(s): B19.20 - Unspecified viral hepatitis C without hepatic coma Status: Acute (5) Oligohydramnios Code(s): O41.00X0 - Oligohydramnios, unspecified trimester, not applicable or unspecified Status: Acute - Plan term IUP for induction due to low JESSICA and opioid history hep C pelvis clinically adequate and proven to 6 pounds favorable bishops score with arom when PCN running and pitocin as needed epidural prn.
--- NOTE | 2017-12-14 12:31 | P.OBLABOR ---
Subjective Interval history: 10/06 pain no epidural yet contractions frequent but not strong Objective Vital Signs: Vital Signs - 8 hr 12/14/17 06:57 12/14/17 06:59 12/14/17 07:59 Temperature 98.8 F Pulse Rate 101 H 82 Respiratory Rate 16 16 Blood Pressure 128/69 98/45 L 12/14/17 09:09 12/14/17 09:30 12/14/17 10:00 Temperature 98.7 F Pulse Rate 79 79 78 Respiratory Rate 18 18 Blood Pressure 115/56 L 115/56 L 106/56 L 12/14/17 10:57 12/14/17 11:55 12/14/17 11:58 Temperature 98.5 F 98.4 F Pulse Rate 75 68 Respiratory Rate 16 20 Blood Pressure 112/59 L 115/56 L Objective: Pelvic Exam: 4-5 cm 80%/-1 strip category one Assessment and Plan - Diagnosis (1) 38 weeks gestation of Code(s): Z3A.38 - 38 weeks gestation of Status: Acute (2) Opioid use disorder Code(s): F11.99 - Opioid use, unspecified with unspecified opioid-induced disorder Status: Acute (3) History of opioid abuse Code(s): Z87.898 - Personal history of other specified conditions Status: Acute (4) Hepatitis C virus infection Code(s): B19.20 - Unspecified viral hepatitis C without hepatic coma Status: Acute (5) Oligohydramnios Code(s): O41.00X0 - Oligohydramnios, unspecified trimester, not applicable or unspecified Status: Acute - Plan term IUP for induction due to low JESSICA and opioid history hep C pelvis clinically adequate and proven to 6 pounds favorable bishops score with arom when PCN running and pitocin as needed epidural prn. 12:30 pm pitocin and epidural now' anticipate
[2017-12-14] MEDS ORDERED: Penicillin G Potassium Inj 2,500,000 UNIT in Sodium Chlor 0.9% Inj 100 ML IV.SIG SCH (13:00)
[2017-12-14] MEDS ORDERED: Lidocaine PF 1% Inj 5 ML Vial ONE (13:05)
[2017-12-14] MEDS ORDERED: Lidocaaine 1.5%/Epinephrine 1:200,000 PF Inj 5 ML Amp ONE (13:05)
[2017-12-14] MEDS ORDERED: fentaNYL 2MCG-Bupiv 0.125% Epi 150 ML EPIDURAL ONE (13:05)
[2017-12-14] MEDS ORDERED: fentaNYL 2MCG-Bupiv 0.125% Epi 150 ML EPIDURAL PRN (14:50)
[2017-12-14] MEDS ORDERED: fentaNYL Citrate Inj 100 MCG/2 ML Ampul EPIDURAL ONE (14:50)
[2017-12-14] MEDS ORDERED: Measles/Mumps/Rubella Vaccine Inj 0.5 ML Vial SQ ONE (16:00)
[2017-12-14] MEDS ORDERED: Witch Hazel 50%/Glyderin 12.5% 40 Pad Jar RECTAL PRN (20:01)
[2017-12-14] MEDS ORDERED: Zolpidem Tartrate 5 MG Tablet PO PRN (20:01)
[2017-12-14] MEDS ORDERED: Oxytocin 30 Units/500ml Premix 30 UNITS/500 ML BAG IV.CONT PRN (20:01)
[2017-12-14] MEDS ORDERED: Bisacodyl 10 MG Supp RECTAL PRN (20:01)
[2017-12-14] MEDS ORDERED: Benzocaine 20% Top Spray 60 ML Can TOPICAL PRN (20:01)
--- NOTE | 2017-12-14 20:05 | P.OBDELI ---
Weeks Gestation: 38 Patient Started Active Labor: Yes Medical Induction of Labor: Yes Artificial Rupture of Membrane: Yes Anesthesia: Epidural Episiotomy: none Vaginal Delivery: Normal Presentation: Occiput anterior Nuchal Cord: None Delayed Cord Clamping (45 sec): Yes Placenta: Spontaneous delivery, Intact, 3 vessel cord, Cord pH Laceration: None Estimated blood loss (mL): 200 : Male Male A Infant Delivery Date: 12/14/17 Delivery Time: 17:45 score (1 min): 8 score (5 min): 9
[2017-12-15] MEDS: Senna/Docusate Sodium 8.6/50 MG Tablet PO SCH ×3 (00:34→21:20)
[2017-12-15] MEDS: Acetaminophen 325 MG Tablet PO PRN ×3 (04:04→21:21)
--- NOTE | 2017-12-15 04:38 | P.PNOB ---
Subjective Post day: 1 Interval history: Doing well, pain controlled, ambulating with difficulty, voiding spontaneously, vaginal bleeding less than menses. Objective Vital Signs/I&O: Vital Signs 12/14/17 06:57 12/14/17 06:59 12/14/17 07:59 Temperature 98.8 F Pulse Rate 101 H 82 Respiratory Rate 16 16 Blood Pressure 128/69 98/45 L 12/14/17 09:09 12/14/17 09:30 12/14/17 10:00 Temperature 98.7 F Pulse Rate 79 79 78 Respiratory Rate 18 18 Blood Pressure 115/56 L 115/56 L 106/56 L 12/14/17 10:57 12/14/17 11:55 12/14/17 11:58 Temperature 98.5 F 98.4 F Pulse Rate 75 68 Respiratory Rate 16 20 Blood Pressure 112/59 L 115/56 L 12/14/17 12:40 12/14/17 13:00 12/14/17 13:25 Temperature Pulse Rate 80 80 75 Respiratory Rate 20 Blood Pressure 115/62 114/74 12/14/17 13:35 12/14/17 13:40 12/14/17 13:50 Temperature Pulse Rate 80 81 72 Respiratory Rate Blood Pressure 124/65 114/48 L 12/14/17 13:55 12/14/17 14:25 12/14/17 14:55 Temperature 98.4 F 97.9 F Pulse Rate 88 78 92 H Respiratory Rate 18 16 Blood Pressure 115/62 114/65 118/66 12/14/17 15:00 12/14/17 15:25 12/14/17 15:55 Temperature 98.4 F Pulse Rate 73 83 80 Respiratory Rate Blood Pressure 116/65 112/55 L 115/49 L 12/14/17 15:58 12/14/17 16:00 12/14/17 16:40 Temperature Pulse Rate 73 73 Respiratory Rate 18 Blood Pressure 111/60 112/67 12/14/17 16:45 12/14/17 16:55 12/14/17 16:59 Temperature 98.3 F Pulse Rate 81 87 Respiratory Rate 16 Blood Pressure 99/53 L 12/14/17 17:30 12/14/17 17:35 12/14/17 17:55 Temperature Pulse Rate 90 88 Respiratory Rate 18 Blood Pressure 109/41 L 124/65 12/14/17 18:00 12/14/17 18:01 12/14/17 18:17 Temperature 98.4 F Pulse Rate 91 H Respiratory Rate 20 Blood Pressure 112/53 L 112/53 L 12/14/17 18:19 12/14/17 18:30 12/14/17 18:32 Temperature Pulse Rate 93 H Respiratory Rate 18 18 Blood Pressure 124/54 L 12/14/17 18:45 12/14/17 19:15 12/14/17 19:45 Temperature Pulse Rate 87 86 87 Respiratory Rate 16 16 Blood Pressure 106/58 L 106/59 L 94/48 L 12/14/17 20:40 Temperature 98.3 F Pulse Rate 80 Respiratory Rate 18 Blood Pressure 116/63 Intake & Output 12/14/17 12/14/17 12/15/17 06:59 18:59 06:59 Intake Total 1000 / 1000 Balance 1000 / 1000 Weight 63.503 kg Intake: IV 1000 / 1000 LR 1000 mL Inj 1,000 ML @ 125 1000 / 1000 mls/hr IV.CONT .Q8H [facility] Rx#: [id number] Result Diagrams: 12/14/17 07:15 Objective Remarks: GENERAL: Well-nourished, well-developed patient. CARDIOVASCULAR: Regular rate and rhythm without murmurs, gallops, or rubs. RESPIRATORY: Breath sounds equal bilaterally. No accessory muscle use. ABDOMEN/GI: Abdomen soft, non-tender. Fundus: Firm, non-tender at umbilicus. GENITOURINARY: Light to moderate bleeding. EXTREMITIES: No cyanosis or edema, non-tender, without signs of DVT. Medications and IVs: Active Medications Acetaminophen (Tylenol) 650 mg PO Q4H PRN PRN Reason: PAIN SCALE 1 TO 2 Last Admin: 12/15/17 04:04 Dose: 650 mg Al Hydroxide/Mg Hydroxide (Milk Of Magnesia Liq) 30 ml PO Q12H PRN PRN Reason: Mild Constipation Benzocaine (Americaine 20% Top [place]) 1 spray TOPICAL Q4H PRN PRN Reason: For Perineum Discomfort Bisacodyl (Dulcolax Supp) 10 mg RECTAL DAILY PRN PRN Reason: SEVERE CONSITIPATION Buprenorphine HCl (Sublingual) 4 mg SL DAILY@0900,1300,1900 IDA Buprenorphine HCl (Sublingual) 4 mg SL DAILY@2300 [facility] Last Admin: 12/15/17 00:34 Dose: 4 mg Diphtheria/Pertussis/Tetanus Vacc (Boostrix Vaccine Inj) 0.5 ml IM .ONCE ONE Stop: 12/15/17 16:01 Oxytocin (Pitocin 30 Units/Ns 500 Ml Premix) 30 units in 500 mls @ 100 mls/hr IV.CONT UNSCH PRN PRN Reason: Heavy bleeding Ibuprofen (Motrin) 800 mg PO Q8H PRN PRN Reason: For Cramping AND PAIN Last Admin: 12/15/17 00:34 Dose: 800 mg Lactulose (Lactulose Liq) 30 ml PO DAILY PRN PRN Reason: SEVERE CONSITIPATION Miscellaneous Information (Misc Information) 1 each OTHER UNSCH PRN PRN Reason: SEE LABEL COMMENTS Stop: 12/15/17 14:50 Miscellaneous Information (Misc Information) 1 each OTHER UNSCH PRN PRN Reason: SEE LABEL COMMENTS Stop: 12/15/17 14:50 Naloxone HCl (Narcan Inj) 0.1 mg IV.PUSH Q2M PRN PRN Reason: for opiate reversal Naloxone HCl (Narcan Inj) 0.1 mg IV.PUSH Q2M PRN PRN Reason: for opiate reversal Ondansetron HCl (Zofran Odt) 4 mg PO Q6H PRN PRN Reason: NAUSEA OR VOMITING Senna/Docusate Sodium (Sadia-Colace) 1 tab PO BID [facility] Last Admin: 12/15/17 00:34 Dose: 1 tab Sennosides (Senokot) 17.2 mg PO Q12H PRN PRN Reason: Moderate Constipation Sodium Chloride (Ns Flush) 2 ml IV.FLUSH BID [facility] Last Admin: 12/15/17 00:35 Dose: 2 ml Sodium Chloride (Ns Flush) 2 ml IV.FLUSH PRN PRN PRN Reason: FLUSH AFTER USING IV ACCESS Witch Maricruz/Glycerin (Tucks Pads) 1 applicatio RECTAL QID PRN PRN Reason: HEMORRHOIDS Zolpidem Tartrate (Ambien) 5 mg PO HS PRN PRN Reason: SLEEP Assessment and Plan - Diagnosis (1) 38 weeks gestation of Code(s): Z3A.38 - 38 weeks gestation of Status: Acute (2) Opioid use disorder Code(s): F11.99 - Opioid use, unspecified with unspecified opioid-induced disorder Status: Acute (3) History of opioid abuse Code(s): Z87.898 - Personal history of other specified conditions Status: Acute (4) Hepatitis C virus infection Code(s): B19.20 - Unspecified viral hepatitis C without hepatic coma Status: Acute (5) Oligohydramnios Code(s): O41.00X0 - Oligohydramnios, unspecified trimester, not applicable or unspecified Status: Acute - Plan 22-year-old status post at 37 weeks and 6 days, induction of labor for oligohydramnios. 1. day #1: Doing well, meeting milestones, anticipate discharge home in the next 24 hours, discussed precautions expectations and follow-up. -Male , discussed circumcision, plans to have done by peds as an outpatient. 2. Hepatitis C: will defer discussion and referral for treatment to her primary managing RELIGIOUS EDUCATOR. 3. Opioid use disorder: Continue home Subutex.
[2017-12-15] MEDS ORDERED: Diphtheria/Tetanus/Pertussis Vaccine Inj 0.5 ML Syringe IM ONE (16:00)
--- NOTE | 2017-12-16 06:22 | P.PNOB ---
Subjective Post day: 2 Interval history: Doing well, no changes from yesterday, prepared for discharge home. Objective Vital Signs/I&O: Vital Signs 12/15/17 07:00 12/15/17 20:00 Temperature 98.2 F 98.7 F Pulse Rate 63 62 Respiratory Rate 18 18 Blood Pressure 98/51 L 117/69 Result Diagrams: 12/14/17 07:15 Objective Remarks: GENERAL: Well-nourished, well-developed patient. CARDIOVASCULAR: Regular rate and rhythm without murmurs, gallops, or rubs. RESPIRATORY: Breath sounds equal bilaterally. No accessory muscle use. ABDOMEN/GI: Abdomen soft, non-tender. Fundus: Firm, non-tender at umbilicus. GENITOURINARY: Light to moderate bleeding. EXTREMITIES: No cyanosis or edema, non-tender, without signs of DVT. Medications and IVs: Active Medications Acetaminophen (Tylenol) 650 mg PO Q4H PRN PRN Reason: PAIN SCALE 1 TO 2 Last Admin: 12/15/17 21:21 Dose: 650 mg Al Hydroxide/Mg Hydroxide (Milk Of Magnesia Liq) 30 ml PO Q12H PRN PRN Reason: Mild Constipation Benzocaine (Americaine 20% Top [place]) 1 spray TOPICAL Q4H PRN PRN Reason: For Perineum Discomfort Bisacodyl (Dulcolax Supp) 10 mg RECTAL DAILY PRN PRN Reason: SEVERE CONSITIPATION Buprenorphine HCl (Sublingual) 4 mg SL DAILY@0900,1300,1900 [facility] Last Admin: 12/15/17 19:26 Dose: 4 mg Buprenorphine HCl (Sublingual) 4 mg SL DAILY@2300 [facility] Last Admin: 12/15/17 23:10 Dose: 4 mg Oxytocin (Pitocin 30 Units/Ns 500 Ml Premix) 30 units in 500 mls @ 100 mls/hr IV.CONT UNSCH PRN PRN Reason: Heavy bleeding Ibuprofen (Motrin) 800 mg PO Q8H PRN PRN Reason: For Cramping AND PAIN Last Admin: 12/15/17 21:23 Dose: 800 mg Lactulose (Lactulose Liq) 30 ml PO DAILY PRN PRN Reason: SEVERE CONSITIPATION Naloxone HCl (Narcan Inj) 0.1 mg IV.PUSH Q2M PRN PRN Reason: for opiate reversal Naloxone HCl (Narcan Inj) 0.1 mg IV.PUSH Q2M PRN PRN Reason: for opiate reversal Ondansetron HCl (Zofran Odt) 4 mg PO Q6H PRN PRN Reason: NAUSEA OR VOMITING Senna/Docusate Sodium (Sadia-Colace) 1 tab PO BID [facility] Last Admin: 12/15/17 21:20 Dose: 1 tab Sennosides (Senokot) 17.2 mg PO Q12H PRN PRN Reason: Moderate Constipation Sodium Chloride (Ns Flush) 2 ml IV.FLUSH BID [facility] Last Admin: 12/15/17 21:24 Dose: Not Given Sodium Chloride (Ns Flush) 2 ml IV.FLUSH PRN PRN PRN Reason: FLUSH AFTER USING IV ACCESS Witch [place]/Glycerin (Tucks Pads) 1 applicatio RECTAL QID PRN PRN Reason: HEMORRHOIDS Zolpidem Tartrate (Ambien) 5 mg PO HS PRN PRN Reason: SLEEP Assessment and Plan - Diagnosis (1) 38 weeks gestation of Code(s): Z3A.38 - 38 weeks gestation of Status: Acute (2) Opioid use disorder Code(s): F11.99 - Opioid use, unspecified with unspecified opioid-induced disorder Status: Acute (3) History of opioid abuse Code(s): Z87.898 - Personal history of other specified conditions Status: Acute (4) Hepatitis C virus infection Code(s): B19.20 - Unspecified viral hepatitis C without hepatic coma Status: Acute (5) Oligohydramnios Code(s): O41.00X0 - Oligohydramnios, unspecified trimester, not applicable or unspecified Status: Acute - Plan 22-year-old status post at 37 weeks and 6 days, induction of labor for oligohydramnios. 1. day #2: Doing well, discharge home today. Follow-up in 2 weeks. -Male , plans to have done by peds as an outpatient. 2. Hepatitis C: will defer discussion and referral for treatment to her primary managing ACETYLENE TORCH OPERATOR. 3. Opioid use disorder: Continue home Subutex.
--- NOTE | 2017-12-16 06:23 | P.DS ---
Date of admission: 12/14/17 06:13 Primary care physician: Sherry Primary Care Physician Brief History from admission: 22-year-old who presented for induction of labor secondary to new finding of oligohydramnios, she underwent a spontaneous vaginal delivery at 37 weeks and 6 days, she was discharged home routinely on day #2. DS: Diagnosis - Discharge Diagnosis (1) 38 weeks gestation of Status: Acute (2) Opioid use disorder Status: Acute (3) History of opioid abuse Status: Acute (4) Hepatitis C virus infection Status: Acute (5) Oligohydramnios Status: Acute DS: Medications - Discharge Medications Prescriptions: ibuprofen 800 mg PO Q8H PRN #30 tab PRN Reason: For Cramping AND PAIN DS: Summary Hospital Course: See brief history - Time Spent with Patient Total time spent providing and/or coordinating discharge services: Less than 30 minutes Exam Vital signs: Vital Signs 12/15/17 07:00 12/15/17 20:00 Temperature 98.2 F 98.7 F Pulse Rate 63 62 Respiratory Rate 18 18 Blood Pressure 98/51 L 117/69 Results Procedures completed during hospitalization: Spontaneous vaginal delivery Discharge Plan - Discharge Disposition Patient Disposition: 01 Discharge Home - Discharge Condition Condition: Good - Physicians Team Primary Care Provider: Primary Sherry Pat Attending Provider: Radha John - Rxs /Orders / Referrals /Forms Prescriptions: New ibuprofen 800 mg Tablet 800 mg PO Q8H PRN (Reason: For Cramping AND PAIN) Qty: 30 RF: 1 Continue buprenorphine HCl 8 mg Tablet, Sublingual 8 mg Sublingual BID Qty: 14 RF: 0 lorazepam [Ativan] 2 mg/mL Solution 1 mg PO BID PRN (Reason: SEVERE AGITATION/ANXIETY) Qty: 14 RF: 0 ondansetron [Zofran ODT] 8 mg Tablet,Disintegrating 8 mg PO TID PRN (Reason: Nausea) Qty: 21 PNV [id number] [] 28 mg iron- 800 mcg Tablet 1 tab PO DAILY Referrals: Primary Care Sherry Montes [Primary Care Provider] - See Instructions - Discharge Instructions Patient Printed Instructions: Vaginal Delivery (DC) Additional Instructions: call to make your 2 weeks visit
[2017-12-16] MEDS: Acetaminophen 325 MG Tablet PO PRN ×2 (06:24→12:59)
[2017-12-16] MEDS: Senna/Docusate Sodium 8.6/50 MG Tablet PO SCH (08:47)
[2017-12-16 08:51] VITALS: BP 106/55
[2017-12-16 08:52] VITALS: PULSE 70; RESP 9; TEMP 98.3
[2017-12-16] MEDS ORDERED: Influenza (Quadrivalent) Vaccine 0.5 ML Syringe IM ONE (12:45)
== END 2017-12-16 13:36 | disposition home or self-care (01) ==
LOC: H2E 06:13 → H1EA 20:30
PROVIDERS: ADMIT Obstetrics & Gynecology; ATTEND Obstetrics & Gynecology